=== PATIENT | female | born 2000 | race Caucasian/White ===

== ENCOUNTER → 2018-03-01 | Outpatient (CLI) | payer BC, OTHER ==
--- NOTE | 2018-03-01 17:56 | Diagnostic Imaging Report ---
PROCEDURE: MRI left joint lower extremity without contrast. TECHNIQUE: Multiplanar, multisequence non contrast-enhanced MRI of the left lower extremity was accomplished. INDICATION: Left knee pain. There are no prior studies available for comparison. FINDINGS: On the sagittal proton dense fat-saturated series, the anterior cruciate ligament cannot be identified. Most likely the ACL is at least partially if not completely torn. The posterior cruciate ligament seems to be intact although the attachment of the PCL to the femur is somewhat indistinct. There could be a partial tear of the posterior cruciate ligament in this area as well. There is also edema/inflammation of the soft tissues about the attachment of the infrapatellar tendon to the tibial tuberosity. There could be a small partial tear of the tendon in this area as well. Furthermore the medial collateral ligament is indistinct as it courses by the medial femoral condyle. Most likely, the medial collateral ligament is at least partially torn. There is edema/inflammation about the fibular collateral ligament but there is no evidence for a tear. The attachment of the biceps femoris tendon is not visualized in its entirety. The iliotibial band seems to be intact. There is no evidence for a tear of the medial or lateral retinaculum. Previously abnormal signal throughout the posterior horn of the medial meniscus. This would be consistent with a tear. The lateral meniscus is intact. There are vague areas of increased signal within the lateral femoral condyle and the medial aspect of the proximal tibia on the coronal STIR series. Most likely these findings are secondary to bone edema and are probably related to the suspected injury to the ACL. There is a moderate to large joint effusion present as well. IMPRESSION: 1. The poor visualization of the anterior cruciate ligament would indicate that the ACL is at least partially if not completely torn. There also appears to be a partial tear of the medial collateral ligament and there may be small partial tears involving the attachments of the posterior cruciate ligament to the distal femur and the infrapatellar tendon to the tibia. 2. There is extensive tear of the posterior horn of the medial. meniscus. The lateral meniscus is intact. 3. There are bone contusions involving the lateral femoral condyle and the medial aspect of the proximal tibia. 4. There is a moderate to large joint effusion present. Dictated by: Dictated on workstation # [id number]
== END ==
LOC: EDBD → RAD 12:28
PROVIDERS: ATTEND Orthopaedic Surgery
DX: S83.512A Sprain of anterior cruciate ligament of left knee, initial encounter (principal); S83.242A Other tear of medial meniscus, current injury, left knee, initial encounter
CPT/HCPCS: 73721

== ENCOUNTER 2018-08-29 14:42 | Emergency (ER) | payer OTHER, BC ==
[~2018-08-29] VITALS: Ht 185.4 cm; Wt 76.2 kg
--- NOTE | 2018-08-29 15:42 | ED Lower Extremity ---
General Chief Complaint: Lower Extremity Stated Complaint: POSSIBLE BLOOD CLOT Nursing Triage Note: PATIENT STATES THAT SHE IS HAVING SWELLING AND DISCOMFORT IN LEFT KNEE. UNABLE TO STRAIGHTEN HER LEG. 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 Nursing Sepsis Screen: No Definite Risk Source: patient Exam Limitations: no limitations History of Present Illness Date Seen by Provider: Aug 29, 2018 Time Seen by Provider: 15:39 Initial Comments To ER with posterior left knee pain. She's been unable to fully extend her knee. She has a history of anterior cruciate ligament repair on the right and subsequent DVT/pulmonary embolism. She took an unknown anticoagulant for a period of time. She then had anterior cruciate ligament repair on the left in March 2018. About 1 week ago she developed some pain to the popliteal fossa on the left. No known injury. No apparent swelling. No shortness of breath or dyspnea on exertion Onset: last week Severity: moderate Pain/Injury Location: left knee Method of Injury: unknown Modifying Factors: Worse With Movement Allergies and Home Medications Patient Home Medication List Home Medication List Reviewed: Yes Review of Systems Constitutional: see HPI EENTM: see HPI Respiratory: no symptoms reported Cardiovascular: no symptoms reported Genitourinary: no symptoms reported Musculoskeletal: see HPI Skin: no symptoms reported Psychiatric/Neurological: No Symptoms Reported Past [id number] Hx Patient Social History Recent Foreign Travel: No Contact w/Someone Who Travel: No Recent Infectious Disease Expo: No Physical Exam Vital Signs Vital Signs - First Documented 08/29/18 15:03 Temp 98.9 Pulse 66 Resp 14 B/P (MAP) 117/60 (79) Pulse Ox 100 Capillary Refill : Less Than 3 Seconds Height, Weight, BMI Height: 6'1.00" Weight: 168lbs. 0oz. [id number]; BMI Method:Stated General Appearance: WD/WN, no apparent distress HEENT: PERRL/EOMI, normal ENT inspection Respiratory: no respiratory distress, no accessory muscle use Hips: bilateral hip non-tender, bilateral hip normal inspection, bilateral hip normal range of motion Legs: bilateral leg non-tender, bilateral leg normal inspection, bilateral leg normal range of motion Knees: left knee pain, left knee soft tissue tenderness, left knee swelling Ankles: bilateral ankle non-tender, bilateral ankle normal inspection, bilateral ankle normal range of motion Feet: bilateral foot non-tender, bilateral foot normal inspection, bilateral foot normal range of motion Neurologic/Psychiatric: alert, normal mood/affect Skin: normal color, warm/dry Progress/Results/Core Measures Results/Orders My Orders Orders - NESTOR GONSALES APRN Us Venous Lower Ext Lt (08/29/18 15:14) Vital Signs/I&O 08/29/18 08/29/18 15:03 16:15 Temp 98.9 98.9 Pulse 66 66 Resp 14 14 B/P (MAP) 117/60 (79) 117/60 (79) Pulse Ox 100 100 Blood Pressure Mean: 79 Departure Communication (Admissions) Ultrasound is negative for DVT Impression Primary Impression: Left knee pain Qualified Codes: M25.562 - Pain in left knee Disposition: 01 HOME, SELF-CARE Condition: Stable Departure-Patient Inst. Decision time for Depature: 15:41 Referrals: NO,LOCAL PHYSICIAN (PCP/Family) Primary Care Physician Patient Instructions: Knee Pain Add. Discharge Instructions: If pain persists follow up with [facility] or your primary care provider /orthopedist. Your ultrasound is negative for deep vein thrombosis. All discharge instructions reviewed with patient and/or family. Voiced understanding. NESTOR OGNSALES APRN Aug 29, 2018 15:42
[2018-08-29 16:15] VITALS: BP 117/60
--- NOTE | 2018-08-29 16:20 | Diagnostic Imaging Report ---
PROCEDURE: US left lower extremity venous. TECHNIQUE: Multiple real-time grayscale images were obtained over the left lower extremity in various projections. Additional duplex Doppler and color Doppler images were also obtained. INDICATION: Left lower extremity pain. COMPARISON: None. FINDINGS: The left common femoral vein, femoral vein, deep femoral vein, and popliteal vein are normal in appearance. These vessels show normal compressibility, color flow and doppler augmentation. The visualized deep calf veins demonstrate no distinct intraluminal thrombus. IMPRESSION: 1. No sonographic evidence of deep venous thrombosis in the left lower extremity. Dictated by: Dictated on workstation # [id number]
== END 2018-08-29 16:19 | disposition home or self-care (01) ==
LOC: EDUNIT# 14:42 → ER 14:44
DX: M25.562 Pain in left knee (principal); Z86.718 Personal history of other venous thrombosis and embolism; Z86.711 Personal history of pulmonary embolism